=== PATIENT | female | born 1955 | race African-American/Black ===

== ENCOUNTER 2017-05-20 23:36 | Emergency (ER) | payer OTHER ==
[~2017-05-20] VITALS: Ht 160 cm; Wt 72.7 kg
[2017-05-21 01:42] LABS: HEMATOCRIT 36.1 % (36.0-46.0); MCH 30.9 PG (29.0-34.0); MCHC 33.5 G/DL (30.0-36.0); MCV 92.3 FL (83-99); MEAN PLAT.VOLUME 10.5 uM^3 (9.5-12.4); PLATELET COUNT 188 K/uL (156-360); RBC DIS.WIDTH-CV 11.9 % (11.8-14.6); RBC DIS.WIDTH-SD 40.4 % (39-53); RED BLOOD COUNT 3.91 M/uL (3.80-5.20); WHITE BLOOD COUNT 5.7 K/uL (4.1-10.2)
[2017-05-21 01:53] LABS: CHLORIDE 109 mEq/L (99-109); POTASSIUM 3.7 mEq/L (3.7-5.4); SODIUM 144 mEq/L (136-147)
[2017-05-21 01:55] LABS: GLUCOSE 152 mg/dL (70-99)
[2017-05-21 01:56] LABS: ANION GAP 13 MEQ/L (2-14)
[2017-05-21 01:57] LABS: TOTAL BILIRUBIN 0.3 mg/dL (0.0-1.0)
[2017-05-21 01:58] LABS: ALKALINE PHOSPHATASE 69 IU/L (3-129)
[2017-05-21 01:59] LABS: GFR ESTIMATE (CALCULATED) > 59 mL/min/
[2017-05-21 02:00] LABS: UREA NITROGEN (BUN) 15 mg/dL (9-23)
[2017-05-21 03:55] LABS: TROP-I INTERPRETATION NEGATIVE; TROPONIN-I < 0.01 ng/mL (0.0-0.30)
[2017-05-21 04:04] LABS: ADD MIUA? NO; BILIRUBIN NEGATIVE; BLOOD NEGATIVE; COLOR YELLOW ((YELLOW)); GLUCOSE (STRIP) NEGATIVE; KETONES NEGATIVE; LEUKOCYTES NEGATIVE; NITRITE NEGATIVE; PROTEIN (STRIP) NEGATIVE; SPECIFIC GRAVITY 1.018 (1.000-1.030); UCUL ADDED? NO; UROBILINOGEN 0.2 MG/DL (0.2-1.0)
[2017-05-21 04:43] VITALS: BP 115/68
== END 2017-05-21 04:45 | disposition home or self-care (01) ==
LOC: EME 23:36
PROVIDERS: Physician Assistant
DX: E86.0 Dehydration (principal); R53.1 Weakness; G89.29 Other chronic pain; M54.5 Low back pain
CPT/HCPCS: 71020; 80053; 81003; 84484; 85027; 93005; 99281; 99284; J7030